=== PATIENT | female | born 1995 | race Caucasian/White ===

== ENCOUNTER 2017-10-12 11:41 | Observation (INO) | payer MEDICAID ==
[2017-10-12] MEDS: LR 1,000 ML IV SCH ×2 (12:30→13:45)
--- NOTE | 2017-10-12 19:25 | SOAPPROG ---
SOAP Progress Note Assessment/Plan: Assessment: Plan: ICD10 Worksheet Patient Problems: Problems Problem Status Onset Lower back pain Acute Threatened labor Acute
== END 2017-10-12 19:20 | disposition home or self-care (01) ==
LOC: FLD 11:41
PROVIDERS: ADMIT Obstetrics & Gynecology; ATTEND Obstetrics & Gynecology
DX: O99.89 Other specified diseases and conditions complicating pregnancy, childbirth and the puerperium (principal); M54.9 Dorsalgia, unspecified; Z3A.30 30 weeks gestation of pregnancy
CPT/HCPCS: 59025; 76815; G0378; G0379

== ENCOUNTER 2017-11-11 20:47 | Observation (INO) | payer MEDICAID ==
[2017-11-11 21:43] LABS: PLATELET COUNT 222 10^3/uL (150-400)
[2017-11-11] MEDS ORDERED: ACETAMINOPHEN 500 MG TAB PO ONE (22:00)
--- NOTE | 2017-11-12 02:36 | OBPROG ---
Labor Progress Note Assessment/Plan: Assessment: IUP at 34+ wks abd pain Plan: neg evaluation and no sign of labor, suspect normal body discomfort of 11/12/17 02:26 Subjective/Intrapartum Course: 11/12/17 02:27 Pt evaluated for abd discomfort - vague in upper and lower abd with really low pressure and cramping. no LOF, no bld. Denies dysuria and reports normal BM today. Moved here recently from [place] - reports hydrating well. Per RN, exam was closed/ thick and -3 Objective: 11/11/17 21:00 - SVE Dilation (cm): 0 Effacement (%): Less than 50 Station: -3 Membranes: Intact - FHR Assessment Pastor FHR (bpm): 140 FHR Pattern Variability: Moderate FHR Category: 1 (reactive NST) Oxytocin Orders Assessment - Pre-Induction/Augmentation Assessment Gestational Age: 34 week(s) and 3 day(s) ICD10 Worksheet Patient Problems: Problems Problem Status Onset Lower back pain Acute Threatened labor Acute
== END 2017-11-11 22:05 | disposition home or self-care (01) ==
LOC: FLD 20:47
PROVIDERS: ADMIT Obstetrics & Gynecology; ATTEND Obstetrics & Gynecology
DX: O47.03 False labor before 37 completed weeks of gestation, third trimester (principal); R10.10 Upper abdominal pain, unspecified; Z3A.34 34 weeks gestation of pregnancy
CPT/HCPCS: G0378

== ENCOUNTER 2017-12-10 10:23 | Observation (INO) | payer MEDICAID | END 2017-12-10 14:20 | disposition home or self-care (01) | LOC: FLD 10:23 | PROVIDERS: ADMIT Obstetrics & Gynecology; ATTEND Obstetrics & Gynecology | DX: Z34.03 Encounter for supervision of normal first pregnancy, third trimester (principal) | CPT/HCPCS: G0378 ==

== ENCOUNTER 2017-12-10 21:46 | Observation (INO) | payer MEDICAID ==
[2017-12-10] MEDS ORDERED: TERBUTALINE SULFATE 1 MG/ML VIAL SC PRN (22:31)
[2017-12-11] MEDS ORDERED: ACETAMINOPHEN 500 MG TAB PO ONE (03:45)
[2017-12-11] MEDS ORDERED: diphenhydrAMINE 25 MG CAP PO ONE (03:45)
== END 2017-12-11 04:05 | disposition home or self-care (01) ==
LOC: FLD 21:46
PROVIDERS: ADMIT Obstetrics & Gynecology; ATTEND Obstetrics & Gynecology
DX: O47.1 False labor at or after 37 completed weeks of gestation (principal); Z3A.38 38 weeks gestation of pregnancy
CPT/HCPCS: 59025; G0378

== ENCOUNTER 2017-12-13 16:54 | Inpatient (IN) | payer MEDICAID ==
[2017-12-13] MEDS ORDERED: OLIVE OIL 118 ML BTL MISC PRN (17:11)
[2017-12-13] MEDS ORDERED: MISOPROSTOL 200 MCG TAB PR PRN (17:11)
[2017-12-13] MEDS ORDERED: TERBUTALINE SULFATE 1 MG/ML VIAL IV PRN (17:11)
[2017-12-13] MEDS ORDERED: LR 1,000 ML IV PRN (17:11)
[2017-12-13] MEDS ORDERED: LIDOCAINE 1% 300 MG/30 ML SDV SC PRN (17:11)
[2017-12-13] MEDS ORDERED: OXYTOCIN/RINGERS LACTATE 1,000 ML IV PRN (17:11)
[2017-12-13] MEDS ORDERED: EPSOM SALT 454 GM TP PRN (17:11)
[2017-12-13] MEDS ORDERED: LR 500 ML IV PRN (17:45)
[2017-12-13] MEDS ORDERED: OXYTOCIN/RINGERS LACTATE 30 UNIT/500 ML BAG IV ONE (17:49)
[2017-12-13] MEDS ORDERED: OXYTOCIN 10 UNIT/ML VIAL ONE (17:52)
--- NOTE | 2017-12-13 17:52 | PDGENHP ---
History and Physical History and Physical: CARE: Transfer of care to [facility] at 30 weeks -moved to [facility] from [facility] HPI: Patient is a 22 yo at 39 weeks ega who presents to L&D with complaints of SROM at approximately 1030 this morning - mod amt clear fluid, with irregular contractions since then. She was seen in the office today and found to be 4/80/- 2 station with + ferning. She reports regular movement and denies vaginal bleeding. Contractions are mild and every 3-5 minutes. EDC: 12/20/17 which is based on LMP: 03/15/18 which is known and consistent with Ultrasound at 8 weeks. Her is complicated by: 1. Threatened PTL at 30.1 weeks ega - FFN neg, CL 2.6 cm. Pos BV - treated with metrogel at that time Review of Systems: Constitutional: Denies any fever, chills, or fatigue HEENT: denies any visual changes, difficulty swallowing, hearing loss Cardiovascular: Denies any chest pain, palpitations, leg swelling Respiratory: denies any cough, wheezing, or shortness of breathe GI: Denies any nausea, vomiting, diarrhea, constipation : denies any dysuria, urgency, frequency, vaginal bleeding Musculoskeletal: denies any muscle or bone pain Skin: denies any rashes Neuro: denies any headache, seizures, lightheadedness, dizziness, or loss of consciousness Psychiatric: denies any depression, anxiety, or SI/HI thoughts HISTORY: Previous OB history: none Past medical history: Mononucleosis 2012 Past surgical history: Tonsillectomy 2013 Medications: PNV, iron Allergies : hydrogen peroxide, nitrofurantoin LABS: Rh: O pos ABS: Neg Rubella: Immune HbsAg: NR HIV: NR VDRL: NR 1hr: 125 GC: Neg Chlamydia: Neg Pap: wnl 05/17 GBS: neg Standard panel: neg PHYSICAL EXAM: Constitutional: WN, A&Ox3 HEENT: normocephalic atraumatic, supple Heart: RRR, no murmur Chest: CTA-B Abdomen: Soft, nontender, gravid SVE: 4/80/-2 Extremities: sm. edema, negative raza's sign Neuro: grossly normal Psych: normal affect assessment: Reassuring FHTs, baseline 130s +accels, no decels, moderate variability Contractions: toco q 3-5 mild Assessment: 1) 22 yo G 1 P 0 with IUP@ 39 wks 2) SROM clear fluid with early labor 3) GBS neg 4) Cat 1 FHR tracing 5) EFW 3500 gms Plan: 1) Admit to L&D 2) Start pitocin for augmentation 3) Diet as tolerated 4) Pain management per patient desires 5) Anticipate
[2017-12-13] MEDS ORDERED: OXYTOCIN/RINGERS LACTATE 500 ML IV SCH (18:00)
[2017-12-13 18:43] LABS: PLATELET COUNT 243 10^3/uL (150-400)
[2017-12-13] MEDS ORDERED: PHENYLEPHRINE HCL 100 MCG/ML SYR ONE (19:55)
[2017-12-13] MEDS ORDERED: BUPIVACAINE 0.25% 30 ML SDV ONE (19:56)
[2017-12-13] MEDS ORDERED: fentaNYL 200 MCG, BUPIVACAINE 0.5% 20 ML in NS 100 ML EP SCH ×2 (20:00→21:00)
[2017-12-13] MEDS ORDERED: NALOXONE HCL 0.4 MG/ML INJ IVP PRN (20:23)
[2017-12-13] MEDS ORDERED: PHENYLEPHRINE HCL 100 MCG/ML SYR IVP PRN (20:23)
[2017-12-13] MEDS ORDERED: ONDANSETRON 4 MG/2 ML VIAL IVP PRN (20:23)
--- NOTE | 2017-12-13 20:23 | PREANESOB ---
Obstetric Pre-Anesthesia Info - General Info : 1 Para: 0 DUC: 12/20/17 Gestational Age: 39 week(s) and 0 day(s) Anesthesia Allergies/Adverse Reactions: Allergy/AdvReac Type Severity Reaction Status Date / Time hydrogen peroxide Allergy Hives Verified 10/12/17 12:24 nitrofurantoin Allergy Other-Enter Verified 10/12/17 12:24 [From Macrobid] Comments Home Medications: Medication Instructions Recorded 1 gum PO DAILY 10/12/17 Iron 12/13/17 Visit Medications: Generic Name Dose Route Start Last Admin Trade Name Freq PRN Reason Stop Dose Admin Lactated Ringer's 1,000 mls @ 0 mls/hr 12/13/17 17:11 Lr IV 12/14/17 17:10 PRN PRN SEE PROTOCOL CONDITIONS Protocol Per Protocol Oxytocin/Lactated Ringer's 1,000 mls @ 125 mls/hr 12/13/17 17:11 Pitocin 20 Units/Lr (Premix) IV PRN PRN Post bleeding Lactated Ringer's 500 mls @ 500 mls/hr 12/13/17 17:45 Lr IV 12/14/17 17:45 PRN PRN Maternal Hypotension Oxytocin/Lactated Ringer's 500 mls @ 0 mls/hr 12/13/17 18:00 Pitocin 30 Units/Lr (Premix) IV 06/11/18 17:59 CONT [facility] Protocol Per Protocol Fentanyl 200 mcg/ Bupivacaine 100 mls @ 0 mls/hr 12/13/17 20:00 HCl 20 ml/ Sodium Chloride EP 12/23/17 19:59 CONT [facility] Protocol As Directed Ibuprofen 600 mg 12/13/17 17:11 Motrin PO ONCE PRN post , pain Lidocaine HCl 300 mg 12/13/17 17:11 Lidocaine Hcl 1% SC 06/11/18 17:10 ONCE PRN episiotomy Magnesium Sulfate 454 gm 12/13/17 17:11 Epsom Salt TP 06/11/18 17:10 Q1H PRN perineal discomfort Misoprostol 800 - 1,000 mcg 12/13/17 17:11 Cytotec MN ONCE PRN Vaginal Atony/Bleeding [place] Oil 118 ml 12/13/17 17:11 Sweet Oil MISC 06/11/18 17:10 ONCE PRN perineal massage Terbutaline Sulfate 0.25 mg 12/13/17 17:11 Brethine IV 06/11/18 17:10 ONCE PRN Tachysystole Discontinued Medications Generic Name Dose Route Start Last Admin Trade Name Whitley PRN Reason Stop Dose Admin Bupivacaine HCl Confirm 12/13/17 19:56 Sensorcaine 0.25% Sdv Administered 12/13/17 19:57 Dose 30 ml .ROUTE .STK-MED ONE Oxytocin Confirm 12/13/17 17:52 Pitocin Administered 12/13/17 17:53 Dose 30 unit .ROUTE .STK-MED ONE Oxytocin/Lactated Ringer's Confirm 12/13/17 17:49 Pitocin 30 Units/Lr (Premix) Administered 12/13/17 17:50 Dose 30 unit IV .STK-MED ONE Phenylephrine HCl Confirm 12/13/17 19:55 Neosynephrine Administered 12/13/17 19:56 Dose 1,000 mcg .ROUTE .STK-MED ONE - Anesthesia History Response to Local Anesthetics: Normal Anesthesia & Operative History: No Prior Problems - Vital Signs Height/Weight (Nursing): Height 172.72 cm Weight 82.554 kg - Focused Exam Neck exam: FROM Mallampati Score: Class 1 Pulmonary: no respiratory distress Cardiovascular: regular rate and rhythym Labs: 12/13/17 17:11 Patient ABO/Rh O POSITIVE 12/13/17 17:11 - Plan Anesthetic Plan: PCEA Consent Signed and on Chart: Yes
[2017-12-13] MEDS ORDERED: LR 500 ML IV SCH (20:30)
[2017-12-13] MEDS ORDERED: fentaNYL 2MCG/ML/BUP 0.1% RTU 100 ML EP SCH (20:30)
[2017-12-13] MEDS ORDERED: FENT2MCG/ML&BUP0.1% 1 EA, fentaNYL 200 MCG, BUPIVACAINE 0.5% 20 ML in NS 100 ML IV SCH (20:33)
[2017-12-13] MEDS ORDERED: NARCOTIC DRIP BAG-TOTAL ALL TYPES IV PRN (20:33)
[2017-12-14] MEDS ORDERED: SIMETHICONE 80 MG TAB CHEW PO PRN (00:38)
[2017-12-14] MEDS ORDERED: HYDROCORTISONE 0.5% CREAM TP PRN (00:38)
[2017-12-14] MEDS ORDERED: HYDROCODONE/APAP 5/325 TAB PO PRN (00:38)
--- NOTE | 2017-12-14 00:48 | OBDEL ---
Info Type: Vaginal Presentation at Delivery: Vertex L&D Analgesia/Anesthesia Type: Epidural GBS+: No Indications for Delivery: SROM Vaginal Delivery - Delivery Provider Delivery Physician/CNM: Nancy Higgins - Labor and Delivery Onset of Contractions Date: 12/13/17 Onset of Contractions Time: 21:00 Onset of Contractions Type: Augmented Rupture of Membranes Date: 12/13/17 Rupture of Membranes Time: 10:30 Rupture of Membranes Type: Spontaneous Amniotic Fluid Color: Clear Dilation Complete Date: 12/13/17 Dilation Complete Time: 22:45 Placenta Delivery Date: 12/14/17 Placenta Delivery Time: 00:14 Total Hours of Labor: 3 Laceration: 1st Degree Repair: 3-0, Vicryl Vaginal Sponge Count Correct: Yes Vaginal Needle Count Correct: Yes Vaginal Sweep Performed: No EBL: 350 Delivery Events: None - Medications Labor Augmentation/Induction Methods Used: Pitocin Labor Augmentation/Induction Indication: Inadequate Ctx Strength [place] Data DUC: 12/20/17 Gestational Age: 39 week(s) and 1 day(s) Pastor Delivery Date: 12/14/17 Delivery Time: 00:04 Sex of Infant: Female Score (1 Min): 8 Score (5 Min): 9 ICD10 Worksheet Patient Problems: Problems Problem Status Onset Vaginal delivery Acute Lower back pain Acute Threatened labor Acute - ICD10 Problem Qualifiers (1) Vaginal delivery
[2017-12-14] MEDS: IBUPROFEN 600 MG TAB PO PRN ×3 (00:49→17:23)
[2017-12-14] MEDS: DOCUSATE SODIUM 100 MG CAP PO PRN (08:43)
[2017-12-14] MEDS: FERROUS SULFATE 325 MG TAB PO SCH (08:43)
--- NOTE | 2017-12-14 11:44 | OBPP ---
Progress Note Assessment/Plan: Assessment: PPD0 (technically) s/p . Doing great, routine advancements. May want to go home tomorrow vs Tuesday. OK to DC fluids and IV. NOHELIA Subjective/ Course: 12/14/17 11:39 Stopped in to see Boaz this AM. Doing great, happy with how things went yesterday. Delivered just after midnight (0004 this AM). BF going well, but would like to talk to still. Pain controlled. Objective: 12/13/17 17:11 Patient ABO/Rh O POSITIVE 12/13/17 17:11 Temp Pulse Resp BP Pulse Ox 36.4 C 79 16 112/74 96 12/14/17 08:00 12/14/17 08:00 12/14/17 08:00 12/14/17 08:00 12/14/17 03:00
--- NOTE | 2017-12-14 13:11 | POSTANESTH ---
Post Anesthetic Evaluation Cardiovascular Status: Normal, Stable Respiratory Status: Normal, Stable Level of Consciousness/Mental Status: Can Participate in Eval Pain Control: Adequate, Prn Tx Ordered Nausea/Vomiting Control: Adequate, Prn Tx Ordered Complications Possibly Related to Anesthesia: None Noted
[2017-12-15] MEDS: IBUPROFEN 600 MG TAB PO PRN ×4 (05:52→19:45)
[2017-12-15] MEDS: DOCUSATE SODIUM 100 MG CAP PO PRN ×2 (12:58→19:45)
[2017-12-15] MEDS: FERROUS SULFATE 325 MG TAB PO SCH (12:58)
[2017-12-15] MEDS ORDERED: FAMOTIDINE 20 MG TAB PO PRN (13:14)
--- NOTE | 2017-12-15 13:32 | OBPP ---
Progress Note Assessment/Plan: Assessment: [id number] s/p PPD#1 flat left nipple anemia intermittent chest pain/pressure Plan: routine PP care EKG ordered Pepcid PO ordered recommended nipple shell for left nipple cont to work with increase iron to BID plan d/c home tomorrow 12/15/17 13:24 Subjective/ Course: 12/14/17 11:39 Stopped in to see Boaz this AM. Doing great, happy with how things went yesterday. Delivered just after midnight (0004 this AM). BF going well, but would like to talk to still. Pain controlled. 12/15/17 13:32 Pt doing well, denies any pain or heavy bleeding. She reported to RN that she was having occ chest pain/pressure since 12/10/2017. She denies any at this time. She is ambulating and voiding without difficulty. She is ok - better latch on right breast, left nipple is flat. FOB @ BS, supportive. Objective: 12/15/17 06:00 Patient ABO/Rh O POSITIVE 12/13/17 17:11 Temp Pulse Resp BP Pulse Ox 36.1 C 91 16 124/78 H 96 12/15/17 09:54 12/15/17 09:54 12/15/17 09:54 12/15/17 09:54 12/15/17 09:54 Uterine Position/Fundal Height: Umbilicus -1, Midline Uterine Tone: Firm
--- NOTE | 2017-12-15 14:30 | CPEKG ---
Heart Rate: 68 RR Interval: 882 P-R Interval: 132 QRSD Interval: 80 QT Interval: 380 QTC Interval: 405 P [place]: 7 QRS [place]: 53 T Wave [place]: 26 EKG Severity - NORMAL ECG - EKG Impression: SINUS RHYTHM Electronically Signed By: Keith Chowdary 16-Dec-2017 07:34:26
[2017-12-15] MEDS: IRON POLYSAC/IRON HEME 28 MG TAB PO SCH ×2 (17:35→19:45)
[2017-12-16] MEDS: IBUPROFEN 600 MG TAB PO PRN ×2 (00:48→06:14)
--- NOTE | 2017-12-16 07:57 | OBPP ---
Progress Note Assessment/Plan: Assessment: 1) s/p PPD # 2 - pt is stable 2) Anemia - pt is asymptomatic Plan: Plan for d/c home today No further CP, thinks she has a cold/cough Instructions reviewed with pt On Rx given Cont Motrin, iron, colace and PNV Rx given for breast pump Pelvic rest RTO in 4 and 6 weeks for pp check 12/16/17 07:54 Subjective/ Course: 12/14/17 11:39 Stopped in to see Boaz this AM. Doing great, happy with how things went yesterday. Delivered just after midnight (0004 this AM). BF going well, but would like to talk to still. Pain controlled. 12/15/17 13:32 Pt doing well, denies any pain or heavy bleeding. She reported to RN that she was having occ chest pain/pressure since 12/10/2017. She denies any at this time. She is ambulating and voiding without difficulty. She is ok - better latch on right breast, left nipple is flat. FOB @ BS, supportive. 12/16/17 07:55 Pt seen and examined. She is doing well, with no complaints. She is tired since she didn't get any sleep and looking forward to sleeping in her own bed. Mild cramping, relief with Motrin. Mod lochia. She is OOB, inna reg diet, voiding and passing flatus. No BM yet. BF going well, states nipples are sore. Will need Rx for breast pump. Denies any f/c/n/v/CP or SOB. Thinks she is getting sick with a cough. Excited to go home today. Objective: 12/15/17 06:00 Patient ABO/Rh O POSITIVE 12/13/17 17:11 Temp Pulse Resp BP Pulse Ox 36.6 C 84 18 123/73 H 95 12/15/17 20:00 12/15/17 20:00 12/15/17 20:00 12/15/17 20:00 12/15/17 20:00 Uterine Position/Fundal Height: Umbilicus -2 Uterine Tone: Firm Physical Exam - Physical Exam Respiratory: lungs clear, normal breath sounds Cardiac/Chest: regular rate, rhythm Abdomen: normal bowel sounds, non-tender, soft, flatus (+) Extremities: non-tender, normal inspection Skin: normal color, warm/dry Neuro/Psych: alert, normal mood/affect, oriented x 3
--- NOTE | 2017-12-16 08:01 | OBGCSDC ---
General Delivery Information - General Info : 1 Para: 1 Abortions: 0 Type: Vaginal L&D Analgesia/Anesthesia Type: Epidural Admission Date: 12/13/17 Labs: Patient ABO/Rh O POSITIVE 12/13/17 17:11 Hct 27.7 % (38.0-47.0) L 12/15/17 06:00 - Hospital Course : 12/14/17 11:39 Stopped in to see Boaz this AM. Doing great, happy with how things went yesterday. Delivered just after midnight (0004 this AM). BF going well, but would like to talk to still. Pain controlled. 12/15/17 13:32 Pt doing well, denies any pain or heavy bleeding. She reported to RN that she was having occ chest pain/pressure since 12/10/2017. She denies any at this time. She is ambulating and voiding without difficulty. She is ok - better latch on right breast, left nipple is flat. FOB @ BS, supportive. 12/16/17 07:55 Pt seen and examined. She is doing well, with no complaints. She is tired since she didn't get any sleep and looking forward to sleeping in her own bed. Mild cramping, relief with Motrin. Mod lochia. She is OOB, inna reg diet, voiding and passing flatus. No BM yet. BF going well, states nipples are sore. Will need Rx for breast pump. Denies any f/c/n/v/CP or SOB. Thinks she is getting sick with a cough. Excited to go home today. Vaginal - Delivery Provider Delivery Physician/CNM: Nancy Higgins - Diagnosis Labor: Augmented Rupture of Membranes Type: Spontaneous Amniotic Fluid Color: Clear Laceration: 1st Degree Repair: 3-0, Vicryl Delivery Events: None - Delivery EBL: 350 [place] Data DUC: 12/20/17 Gestational Age: 39 week(s) and 3 day(s) Pastor Delivery Date: 12/14/17 Delivery Time: 00:04 Sex of Infant: Female Weight (gm): 4146 g Score (1 Min): 8 Score (5 Min): 9 Discharge Information - Discharge Information Instruction/Follow Up: Four Weeks, Six Weeks
[2017-12-16 08:10] VITALS: BP 121/76
[2017-12-16] MEDS: IRON POLYSAC/IRON HEME 28 MG TAB PO SCH (08:58)
[2017-12-16] MEDS: DOCUSATE SODIUM 100 MG CAP PO PRN (08:58)
== END 2017-12-16 09:50 | disposition home or self-care (01) | DRG 560 ==
LOC: FLD 16:54 → UNDODISIN 19:00 → FOB 12-14 02:35
PROVIDERS: ADMIT Advanced Practice Midwife; ATTEND Advanced Practice Midwife
DX: O60.23X0 Term delivery with preterm labor, third trimester, not applicable or unspecified (principal); D64.9 Anemia, unspecified; Z37.0 Single live birth; Z3A.39 39 weeks gestation of pregnancy; O70.0 First degree perineal laceration during delivery; O99.03 Anemia complicating the puerperium
CPT/HCPCS: J2370; J2590; J3010; J3105